=== PATIENT | male | born 1990 | race Caucasian/White ===

== ENCOUNTER 2021-10-21 00:56 | Inpatient (IN) ==
[2021-10-21] MEDS ORDERED: SODIUM CHLORIDE 0.9% 1,000 ML IV STA ×2 (01:08→02:30)
[2021-10-21] MEDS ORDERED: LORazepam 2 MG/1 ML VIAL IV STA (01:12)
[2021-10-21] MEDS ORDERED: HALOPERIDOL 5 MG/ML AMP IM STA (01:21)
[2021-10-21 01:22] LABS: Basophils # 0.1 10*3/uL (0.0-0.2); Basophils % 0.4 % (0.0-0.8); Eosinophils # 0.1 10*3/uL (0.0-0.87); Eosinophils % 0.2 % (0.00-10.9); Hematocrit 54.5 VOL% (42.0-52.0); Hemoglobin 18.3 GM/DL (14.0-18.0); Immature Granulocytes % 0.7 %; Immature Granulocytes Absolute 0.19 #; Lymphocytes # 1.4 10*3/uL (1.4-4.0); Lymphocytes % 5.2 % (21.2-54.2); Mean Corpuscular HGB Conc 33.6 GM/DL (32-36); Mean Corpuscular Volume 91.9 FL (87-102); Mean Platelet Volume 9.5 FL (9.6-12.0); Monocytes # 1.7 10*3/uL (0.11-0.8); Monocytes % 6.5 % (1.7-12.7); Platelet Count 269 T/CUMM (130-400); Red Blood Count 5.93 MC/CUMM (3.8-5.5); Red Cell Distribution Width 13.8 % (9.3-17.3); White Blood Count 26.7 T/CUMM (4-12)
[2021-10-21] MEDS ORDERED: HALOPERIDOL 5 MG/ML AMP ONE ×2 (01:22)
[2021-10-21] MEDS ORDERED: HALOPERIDOL 5 MG/ML AMP IV STA (01:25)
[2021-10-21 01:32] LABS: Blood Urea Nitrogen 23 MG/DL (7-18); Calcium 9.8 MG/DL (8.5-10.1); Carbon Dioxide 24 MMOL/L (21-32); Chloride 104 MMOL/L (98-107); Estimated Glom Filtration Rate 64 ML/MIN; Glucose 134 MG/DL (74-106); Osmolality,Calculated 280.7 MOS/KG (273-304); Potassium 3.5 MMOL/L (3.5-5.1); Sodium 138 MMOL/L (136-145)
[2021-10-21 01:40] LABS: Lymphocytes 4 % (20-55); Total Cells Counted 100
[2021-10-21 01:41] LABS: Platelet Estimate Normal
[2021-10-21 02:44] LABS: Bacteria,Urine Many /HPF (Few); Bilirubin,Urine Negative (Negative); Blood, Urine Large mg/dL (Negative); Glucose,Urine (UA) Negative (Negative); Hyaline Casts,Urine 6 /LPF (0-3); Ketones,Urine Negative (Negative); Mucus,Urine Occasional /LPF (Occasional); Nitrite,Urine Negative (Negative); Protein,Urine 100 mg/dL (Negative); RBC,Urine 237 /HPF (0-4); Sperm,Urine Few /HPF (Negative); Urine Appearance Slightly Cloudy (Clear); Urine Color Yellow (Yellow); Urine Specific Gravity > 1.030 (1.001-1.035); Urine Urobilinogen 0.2 eU/dL (<2.0); Urine pH 5.5 (4.5-8.0)
[2021-10-21] MEDS ORDERED: ALBUTEROL 2.5 MG/3 ML NEB RESP TX PRN (02:56)
[2021-10-21] MEDS ORDERED: ONDANSETRON 4 MG/2 ML VIAL IV PRN (02:57)
[2021-10-21] MEDS ORDERED: PANTOPRAZOLE 40 MG VIAL IV SCH (03:00)
[2021-10-21 03:10] LABS: Barbiturates Screen,Urine Negative (Negative); Benzodiazepines Screen,Urine Positive (Negative); Cannabinoid Screen,Urine Negative (Negative); Opiate Screen,Urine Positive (Negative); Phencyclidine Screen,Urine Negative (Negative)
[2021-10-21] MEDS ORDERED: HALOPERIDOL 5 MG/ML AMP IM PRN (03:21)
[2021-10-21 03:36] VITALS: BP 105/62
[2021-10-21 04:03] LABS: Albumin 3.9 G/DL (3.4-5.0); Bilirubin,Total 0.8 MG/DL (0.20-1.00); Calcium 8.1 MG/DL (8.5-10.1); Osmolality,Calculated 289.8 MOS/KG (273-304); Potassium 3.5 MMOL/L (3.5-5.1); Total Protein 6.2 G/DL (6.4-8.2)
[2021-10-21 04:38] LABS: Risk Ratio 3.68
[2021-10-21] MEDS: SODIUM CHLORIDE 0.9% 1,000 ML IV SCH ×2 (05:44→14:08)
[2021-10-21 12:38] LABS: Albumin 3.5 G/DL (3.4-5.0); Calcium 8.4 MG/DL (8.5-10.1); Potassium 3.9 MMOL/L (3.5-5.1); Total Protein 6.2 G/DL (6.4-8.2)
[2021-10-21 13:03] LABS: CKMB % 0.36 %
== END 2021-10-21 16:13 | disposition left against medical advice (07) | DRG 885 ==
LOC: N.ED 00:56 → N.CC 02:56
PROVIDERS: ADMIT Internal Medicine; ATTEND Internal Medicine